=== PATIENT | female | born 1945 | race Caucasian/White ===

== ENCOUNTER → 2024-07-04 15:47 | Outpatient (REF) | payer MEDICARE, OTHER, SELFPAY | LOC: PAVMRI 15:47 | PROVIDERS: ATTENDING PHYSICIAN Internal Medicine; FAMILY PHYSICIAN Family Medicine | DX: M54.2 Cervicalgia (principal); M47.812 Spondylosis without myelopathy or radiculopathy, cervical region; S13.4XXA Sprain of ligaments of cervical spine, initial encounter | CPT/HCPCS: 72141 ==